=== PATIENT | female | born 2000 | race Caucasian/White ===

== ENCOUNTER 2021-02-05 02:32 | Observation (INO) | payer BC ==
[2021-02-05 03:12] VITALS: BMI 38.4
[2021-02-05] MEDS ORDERED: Ondansetron PF 4 MG/2 ML Vial IVP PRN (03:44)
[2021-02-05] MEDS ORDERED: Promethazine HCl 25 MG/ML VIAL IM PRN (03:47)
[2021-02-05] MEDS ORDERED: Morphine 4 MG/ML VIAL SLOW IVP SCH (04:00)
[2021-02-05] MEDS: Ketorolac Tromethamine 30 MG/ML VIAL IVP SCH ×3 (05:03→15:57)
[2021-02-05 08:46] LABS: SARS-CoV-2 NAA Rapid Test Not Detected (NotDetected)
[2021-02-05] MEDS ORDERED: Bupivacaine PF 0.5% 30 ML VIAL ONE (12:18)
[2021-02-05] MEDS ORDERED: EPINEPHrine 1 MG/ML AMP ONE (12:18)
[2021-02-05] MEDS ORDERED: PROPOFOL 20 ML ONE (12:22)
[2021-02-05] MEDS ORDERED: Rocuronium Bromide 10 MG/ML (10ML VIAL) ONE (12:23)
[2021-02-05] MEDS ORDERED: Fentanyl 100 MCG/2 ML VIAL ONE (12:23)
[2021-02-05] MEDS ORDERED: Ondansetron PF 4 MG/2 ML Vial ONE (12:23)
[2021-02-05] MEDS ORDERED: Dexamethasone 4 mg/ml Vial ONE (12:23)
[2021-02-05] MEDS ORDERED: Midazolam HCl 2 mg/2 ml Vial ONE (12:32)
[2021-02-05] MEDS ORDERED: Bupivacaine HCl 0.5%/Epinephrine 1:200,000/PF 30 ml Vial ONE (12:37)
[2021-02-05] MEDS ORDERED: Glycopyrrolate 0.2 MG/ML 5 ML SYRINGE ONE (14:23)
[2021-02-05] MEDS ORDERED: Ketorolac Tromethamine 30 MG/ML VIAL ONE (14:48)
[2021-02-05 15:54] VITALS: TEMP 97.7
[2021-02-05 16:16] VITALS: BP 110/59
== END 2021-02-05 16:00 | disposition home or self-care (01) ==
LOC: INTOOBSV 02:32 → CSHPP 02:32
PROVIDERS: ADMIT Obstetrics & Gynecology; ATTEND Obstetrics & Gynecology
PROC: 0UB04ZZ Excision of Right Ovary, Percutaneous Endoscopic Approach (ICD-10-PCS; principal; 2021-02-05)
PROC: 0JPV0HZ Removal of Contraceptive Device from Upper Extremity Subcutaneous Tissue and Fascia, Open Approach (ICD-10-PCS; 2021-02-05)
DX: N83.291 Other ovarian cyst, right side (principal); Z79.2 Long term (current) use of antibiotics; Z97.5 Presence of (intrauterine) contraceptive device; Z20.822 Contact with and (suspected) exposure to COVID-19
CPT/HCPCS: 88305; 96372; 96374; 96375; G0378; J0171; J1100; J1885; J2250; J2270; J2405; J2550; J2704; J3010; S0020; U0002

== ENCOUNTER 2022-01-08 01:18 | Emergency (ER) | payer BC, SELFPAY | END 2022-01-08 03:08 | disposition home or self-care (01) | LOC: CSHERS 01:18 | DX: R10.31 Right lower quadrant pain (principal) | CPT/HCPCS: 76856 ==